=== PATIENT | male | born 1995 | race Hispanic/Latino ===

== ENCOUNTER 2017-07-25 23:19 | Emergency (ER) | payer OTHER ==
[2017-07-26 00:17] VITALS: BP 130/67; PULSE 66; RESP 16; TEMP 99; O2SAT 100
--- NOTE | 2017-07-26 02:19 | ED PDOC ---
HPI: Wound Care - HPI Time Seen by Provider: 07/26/17 02:15 Chief Complaint (Nursing): Finger,Hand,&Wrist Chief Complaint (Provider): right index finger laceration History Per: Patient History Of Present Illness: 22 y/o male presents with laceration to right hand 2nd digit sustained around 22 :00 last night. Patient states he was trying to put a cover on a knife and it slipped and he cut his finger. Denies numbness/weakness right upper extremity, limitation of movement. Tetanus vaccine up to date. Past Medical History Reviewed: Historical Data, Nursing Documentation, Vital Signs Vital Signs: Last Vital Signs Temp 99.0 F 07/26/17 00:13 Pulse 66 07/26/17 00:13 Resp 16 07/26/17 00:13 BP 130/67 07/26/17 00:13 Pulse Ox 100 07/26/17 00:13 - Medical History PMH: No Chronic Diseases - Surgical History Surgical History: Tonsillectomy - Family History Family History: States: No Known Family Hx - Living Arrangements Living Arrangements: Alone - Allergies Allergies/Adverse Reactions: Allergies Allergy/AdvReac Type Severity Reaction Status Date / Time No Known Allergies Allergy Verified 07/26/17 00:13 Review of Systems ROS Statement: Except As Marked, All Systems Reviewed And Found Negative Skin: Positive for: Other (right finger laceration) Physical Exam - Reviewed Nursing Documentation Reviewed: Yes Vital Signs Reviewed: Yes - Physical Exam Appears: Positive for: Well, Non-toxic, No Acute Distress Extremity: Positive for: Normal ROM, Other (1cm superficial laceration palmar right hand distal digit. No active bleeding. Distal NV/motor intact) - ECG O2 Sat by Pulse Oximetry: 100 Procedure: Wound Repair - Time Performed Time Performed: 02:30 - Time Out Time Out: Side verified, Site verified, Patient ID confirmed, Sterile procedures obs. - Consent Obtained Consent obtained: Verbal - Performed by Performed by: Mid-level Provider - Indications Indication(s):: Laceration - Location Finger:: Right, Index Shape:: Linear Dimensions Length cm: 1cm Dimensions width cm: 0.3cm Depth:: Epidermis - Debris Debris:: None - Irrigated Irrigated with ml of normal saline: 200mL - Wound repair method Sheyla:: Tissue glue, Steri-strips - Muscle repiar layer closed with Muscle repair layer closed with:: Dressing applied, Tetanus up to date Medical Decision Making Medical Decision Making: Patient educated on wound care, advised follow up PMD 2-3 days. Return precautions given. Disposition - Clinical Impression Clinical Impression: Finger laceration - Patient ED Disposition Is Patient to be Admitted: No Counseled Patient/Family Regarding: Diagnosis, Need For Followup - Disposition Disposition: Routine/Home Disposition Time: 02:22 Condition: STABLE Instructions: Laceration (ED), Skin Adhesive Care (ED)
== END 2017-07-26 02:46 | disposition home or self-care (01) ==
LOC: H.ER 23:19
DX: S61.210A Laceration without foreign body of right index finger without damage to nail, initial encounter (principal); W26.0XXA Contact with knife, initial encounter; Y92.89 Other specified places as the place of occurrence of the external cause